=== PATIENT | male | born 2000 | race Caucasian/White ===

== ENCOUNTER 2023-01-13 16:15 | Emergency (ER) | payer SELFPAY ==
[~2023-01-13] VITALS: Ht 167.6 cm; Wt 72.6 kg
[2023-01-13 16:19] VITALS: BP 120/66; PULSE 67; RESP 18; TEMP 98.4; O2SAT 99
[2023-01-13] MEDS ORDERED: MORPHINE SULFATE 4 MG/ML SYR IVP ONE (16:35)
[2023-01-13] MEDS ORDERED: PROPOFOL 200 MG/20 ML VIAL IV ONE (17:20)
[2023-01-13] MEDS ORDERED: BACITRACIN OINT 500 UNITS/GM PKT TP ONE (18:05)
[2023-01-13] MEDS ORDERED: IBUP-2213 PO (18:27)
[2023-01-13] MEDS ORDERED: ACET-8905 PO (18:27)
[2023-01-13 19:40] VITALS: BP 130/74; PULSE 85; RESP 26; TEMP 98.6; O2SAT 99
== END 2023-01-13 19:40 | disposition home or self-care (01) ==
LOC: MED 16:15
DX: S52.592A Other fractures of lower end of left radius, initial encounter for closed fracture (principal); V98.8XXA Other specified transport accidents, initial encounter; Y93.89 Activity, other specified; Y92.89 Other specified places as the place of occurrence of the external cause; Y99.8 Other external cause status
CPT/HCPCS: 25605; 73090; 73100; 73110; 90471; 90715; 96374; 99285; G0500; J2270; J2704